=== PATIENT | female | born 1950 | race Caucasian/White ===

== ENCOUNTER 2017-01-11 19:21 | Emergency (ER) | payer OTHER ==
[2017-01-11 19:51] VITALS: BP 146/82; PULSE 70; RESP 18; TEMP 97.6; O2SAT 97
--- NOTE | 2017-01-11 20:27 | C.PDOC ---
History Of Present Illness 66 year old female who presents to the ER with a complaint of intermittent left knee pain for the past month that worsened yesterday. Patient states she occasionally hears a click when walking; she reports taking advil with mild relief to pain. Denies recently injury, weakness, or numbness. Time Seen by Provider: 01/11/17 19:51 Chief Complaint (Nursing): Lower Extremity Problem/Injury History Per: Patient History/Exam Limitations: no limitations Onset/Duration Of Symptoms: Days Current Symptoms Are (Timing): Still Present Recent travel outside of the [place]: No Past Medical History Reviewed: Historical Data, Nursing Documentation, Vital Signs Vital Signs: Last Vital Signs Temp 97.6 F 01/11/17 19:46 Pulse 70 01/11/17 19:46 Resp 18 01/11/17 19:46 BP 146/82 01/11/17 19:46 Pulse Ox 97 01/11/17 20:42 - Medical History PMH: HTN Surgical History: No Surg Hx Family History: States: Unknown Family Hx - Social History Hx Tobacco Use: No Hx Alcohol Use: No Hx Substance Use: No - Immunization History Hx Tetanus Toxoid Vaccination: No Hx Influenza Vaccination: No Hx Pneumococcal Vaccination: No Review Of Systems Musculoskeletal: Positive for: Leg Pain Neurological: Negative for: Weakness, Numbness Physical Exam - Physical Exam Appears: Non-toxic, No Acute Distress Skin: Normal Color, Warm, Dry Head: Atraumatic, Normacephalic Oral Mucosa: Moist Cardiovascular: Rhythm Regular Respiratory: Normal Breath Sounds, No Accessory Muscle Use Extremity: Normal ROM (x4), Tenderness (Mild to medial aspect of left knee), No Deformity, No Swelling Pulses: Left Dorsalis Pedis: Normal, Right Dorsalis Pedis: Normal Neurological/Psych: Oriented x3, Normal Speech, Normal Cognition ED Course And Treatment O2 Sat by Pulse Oximetry: 97 (Room air) Pulse Ox Interpretation: Normal - Other Rad Left knee x-ray X-Ray: Interpreted by Me, Viewed By Me Interpretation: No acute fractures or dislocations. Medical Decision Making Medical Decision Makin66 year old female with left knee pain for months. Toradol IM given for pain. XRay ordered and reviewed showing no fracture and degenerative changes. On re- eval patient reports pain is improving. Patient advised take NSAIDs and follow up with PCP or ortho if pain persists Disposition Counseled Patient/Family Regarding: Diagnosis, Need For Followup, Rx Given - Disposition Referrals: Kareem Suggs [Staff Provider] - Disposition: HOME/ ROUTINE Disposition Time: 20:26 Condition: STABLE Additional Instructions: tome naproxeno segn sea necesario para el dolor la radiografa no muestra fractura y cambios artrticos Regrese al servicio de urgencias en cualquier momento si los sntomas persisten o empeoran. Prescriptions: Naproxen [Naprosyn] 1 tab PO BID PRN #25 tab PRN Reason: Pain Instructions: Knee Pain (ED) Forms: [employer] (Chinese) Print Language: MAORI - POA Present On Arrival: None - Clinical Impression Clinical Impression: Arthralgia of knee, left - Scribe Statement The provider has reviewed the documentation as recorded by the Scribe Charlie Mobley All medical record entries made by the Scribe were at my direction and personally dictated by me. I have reviewed the chart and agree that the record accurately reflects my personal performance of the history, physical exam, medical decision making, and the department course for this patient. I have also personally directed, reviewed, and agree with the discharge instructions and disposition.
--- NOTE | 2017-01-12 11:14 | RAD ---
PROCEDURE: Left Knee Radiographs. HISTORY: Pain. COMPARISON: None. FINDINGS: BONES: Normal. No fracture. JOINTS: Medial and patellofemoral osteoarthritis, early. No articular erosion. JOINT EFFUSION: Small to moderate OTHER FINDINGS: None. IMPRESSION: Medial and patellofemoral osteoarthritis. Small moderate joint effusion. Otherwise unremarkable.
== END 2017-01-11 20:42 | disposition home or self-care (01) ==
LOC: C.ER 19:21
DX: M25.562 Pain in left knee (principal)
CPT/HCPCS: 73562; 96372; 99283; J1885